=== PATIENT | female | born 1965 | race Caucasian/White ===

== ENCOUNTER 2021-09-11 14:28 | Emergency (ER) | payer SELFPAY ==
[~2021-09-11] VITALS: Ht 152.4 cm; Wt 62.1 kg
[2021-09-11 14:34] VITALS: BP 209/101
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
--- NOTE | 2021-09-11 16:21 | NUR ---
TO RADIOLOGY VIA WHEELCHAIR
[2021-09-11] MEDS ORDERED: TDAP [DIPH/PERTUSSIS/TET] 0.5 ML VIAL IM ONE (16:26)
[2021-09-11] MEDS: TDAP [DIPH/PERTUSSIS/TET] 0.5 ML VIAL IM ONE (16:32)
[2021-09-11] MEDS: LIDOCAINE 1%-EPI 1:100,000 20 ML VIAL TP ONE (16:58)
--- NOTE | 2021-09-11 18:09 | NUR ---
Patient discharged to home in stable condition. Written and verbal after care instructions given. Patient verbalizes understanding of instruction.
== END 2021-09-11 18:09 | disposition home or self-care (01) ==
LOC: ER 15:10
DX: S01.01XA Laceration without foreign body of scalp, initial encounter (principal); W22.8XXA Striking against or struck by other objects, initial encounter; Y93.89 Activity, other specified; Y92.89 Other specified places as the place of occurrence of the external cause; Y99.8 Other external cause status
CPT/HCPCS: 12004; 70450; 90471; 90715; 99284; A6403

== ENCOUNTER 2021-09-19 10:43 | Emergency (ER) | payer SELFPAY ==
[~2021-09-19] VITALS: Ht 152.4 cm; Wt 63.5 kg
[2021-09-19 10:52] VITALS: BP 208/86
[2021-09-19] MEDS ORDERED: HYDR25TA4 PO (11:36)
--- NOTE | 2021-09-19 11:40 | NUR ---
Patient discharged to home in stable condition. Written and verbal after care instructions given. Patient verbalizes understanding of instruction.
== END 2021-09-19 11:40 | disposition home or self-care (01) ==
LOC: ER 10:45
DX: S01.01XD Laceration without foreign body of scalp, subsequent encounter (principal); I10 Essential (primary) hypertension; X58.XXXD Exposure to other specified factors, subsequent encounter